=== PATIENT | female | born 1950 | race Caucasian/White ===

== ENCOUNTER → 2022-11-25 | Day surgery (SDC) | payer MEDICARE, BC ==
[~2022-11-25] MED LIST: Lidocaine 1% 5 ML VIAL ONE; Lidocaine 1% w/EPINEPHrine 100 ML, Sodium Chloride 0.9% 900 ML, Sodium Bicarbonate 10 MEQ INJECT ONE
[2022-11-25] MEDS: Lidocaine 1% 5 ML VIAL INJECT ONE ×2 (13:04→13:24)
== END ==
LOC: CC.SDS 11:52
PROVIDERS: ATTEND Family Medicine
DX: I83.813 Varicose veins of bilateral lower extremities with pain (principal); I87.2 Venous insufficiency (chronic) (peripheral); K21.9 Gastro-esophageal reflux disease without esophagitis; E03.9 Hypothyroidism, unspecified; G47.30 Sleep apnea, unspecified; Z88.1 Allergy status to other antibiotic agents; Z88.8 Allergy status to other drugs, medicaments and biological substances; Z79.890 Hormone replacement therapy; Z79.899 Other long term (current) drug therapy
CPT/HCPCS: 36475; A4216; J3490